=== PATIENT | female | born 2005 | race Caucasian/White ===

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

== ENCOUNTER 2023-01-25 00:21 | Emergency (ER) | payer OTHER, MEDICAID, SELFPAY ==
[2023-01-25 00:24] VITALS: BP 123/65; PULSE 90; RESP 18; TEMP 36.7; O2SAT 98; BMI 36.3
--- NOTE | 2023-01-25 00:50 | ED.RECABL ---
HPI - Recheck/Abnormal Lab/Rx <Monty Dickerson DO - Last Filed: 01/29/23 19:02> General Chief Complaint: Recheck/Abnormal Lab/Rx Stated Complaint: DCS sent Him over to stay the night Time Seen by Provider: 01/25/23 00:26 Source: patient Mode of arrival: Ambulatory History of Present Illness HPI narrative: 17 year old transgender male presents for evaluation. He has a long standing mental health history and made some suicidal comments to mother earlier tonight. EMS was dispatched and there was apparently a discussion with a DCR who had suggested the patient be transported here. The patient came under voluntary circumstances by cab and has absolutely no complaints at this time. Specifically he has no suicidal or homicidal ideation. Has no headaches or blurred vision, no chest pain or shortness of breath. He states that he just does not know what to do now and has been told he can not go home and has no other family in the area. Related Data Home Medications Medication Instructions Recorded Confirmed omeprazole 20 mg capsule,delayed 20 mg PO DAILY 12/22/22 12/28/22 release Previous Rx's Medication Instructions Recorded albendazole 200 mg tablet 400 mg PO Q2W 2 doses #4 tabs 12/24/22 docusate sodium 100 mg capsule 100 mg PO BID PRN Constipation #30 12/25/22 caps hydrocodone 5 mg-acetaminophen 325 2 tab PO Q6HR #20 tabs 12/25/22 mg tablet ibuprofen 600 mg tablet 600 mg PO Q6H #20 tabs 12/25/22 aripiprazole 2 mg tablet (Abilify) 2 mg PO BEDTIME #30 tabs 12/28/22 ascorbic acid (vitamin C) 500 mg 500 mg PO DAILY #90 tabs 12/28/22 tablet ferrous sulfate 325 mg (65 mg 325 mg PO DAILY #90 tabs 12/28/22 iron) tablet aripiprazole 2 mg tablet 2 mg PO BEDTIME #5 tabs 01/25/23 omeprazole 20 mg capsule,delayed 20 mg PO DAILY #5 caps 01/25/23 release Allergies Allergy/AdvReac Type Severity Reaction Status Date / Time erythromycin base Allergy Verified 01/25/23 00:23 Sulfa (Sulfonamide Allergy Verified 01/25/23 00:23 Antibiotics) Review of Systems <DO Ciro Canas Last Filed: 01/29/23 19:02> Review of Systems Narrative: GENERAL: Denies chills, fatigue, malaise, fever, sweats. HEENT: Denies sinus pain, ear pain, sore throat, difficulty swallowing, dizziness. RESPIRATORY: Denies dyspnea, cough, wheezing, hemoptysis, sputum. CARDIOVASCULAR: Denies chest pain, palpitations, orthopnea, edema, GASTROINTESTINAL: Denies nausea, vomiting, abdominal pain, diarrhea, constipation, melena. : Denies dysuria, frequency, incontinence, hematuria, urinary retention. MUSCULOSKELETAL: denies weakness, joint pain, or bony pain SKIN: Denies rash, skin lesions, or other NEUROLOGIC: Denies weakness, headache, numbness, change in speech, confusion, seizures, incoordination. PSYCHIATRIC: See HPI 12 point review of systems is negative except for those stated above Patient History <Monty Dickerson DO - Last Filed: 01/29/23 19:02> Medical History Abdominal pain Acute appendicitis Anxiety (~2005) Depression (~2005) Psychosis PTSD (post-traumatic stress disorder) (~2005) Surgical History Anesthesia History of eye surgery (~2005) History of tonsillectomy Social History household members: family Smoking Status: Current every day smoker alcohol intake: never Smoking Status: Current every day smoker tobacco type: cigarettes Substance Use Type: does not use Exam <Monty Dickerson DO - Last Filed: 01/29/23 19:02> Narrative Exam Narrative: GEN: AOx3 and in mild distress EYES: Pupils are equal, round, and reactive to light and accommodation. Extraoccular muscles are intact bilaterally. There is no subconjunctival hemorrhage or exudate. CHEST: Lungs are clear to auscultation bilaterally and free of wheezes, rales, or rhonchi. Heart rate is regular rhythm, there are no murmurs, clicks, rubs, or gallops. There is no chest wall tenderness. ABD: Abdomen is soft and nontender. There is no guarding or rebound. Bowel sounds are normal in all 4 quadrants. There is no mass or organomegaly. EXT: Full painless ROM of all extremities with no loss of sensation or strength. SKIN: Warm, pink, and dry. No erythema or rash Initial Vital Signs Initial Vital Signs: Vital Signs Temperature 98.1 F 01/25/23 00:24 Pulse Rate 90 01/25/23 00:24 Respiratory Rate 18 01/25/23 00:24 Blood Pressure 123/65 01/25/23 00:24 Pulse Oximetry 98 01/25/23 00:24 Oxygen Delivery Method Room Air 01/25/23 00:24 <Leah Dillard DO - Last Filed: 01/28/23 08:19> Initial Vital Signs Initial Vital Signs: Vital Signs Temperature 98.1 F 01/25/23 00:24 Pulse Rate 90 01/25/23 00:24 Respiratory Rate 18 01/25/23 00:24 Blood Pressure 123/65 01/25/23 00:24 Pulse Oximetry 98 01/25/23 00:24 Oxygen Delivery Method Room Air 01/25/23 00:24 Course <Monty Dickerson DO - Last Filed: 01/29/23 19:02> Orders Ordered: ED Orders 01/25/23 00:29 Consult to [facility] Software Engineer Developer Stat Vital Signs Vital signs: Vital Signs - 8 hr 01/25/23 00:24 Temperature 98.1 F Pulse Rate 90 Respiratory Rate 18 Blood Pressure 123/65 Pulse Oximetry 98 Oxygen Delivery Method Room Air <DO Ciro David Last Filed: 01/28/23 08:19> Orders Ordered: ED Orders 01/25/23 00:[facility] Vital Signs Vital signs: Vital Signs - 8 hr 01/25/23 00:24 Temperature 98.1 F Pulse Rate 90 Respiratory Rate 18 Blood Pressure 123/65 Pulse Oximetry 98 Oxygen Delivery Method Room Air <DO Ciro David Last Filed: 01/28/23 08:19> MDM Narrative Medical decision making narrative: Patient signed out to myself while awaiting disposition. Patient seen and evaluated. Patient was also seen by DISTRIBUTION DESIGNER. Patient's adoptive mom is actually an adult who 'adopted' the patient reportedly over [facility]. Patient has had a recent hospitalization at [facility] in the last several weeks. Patient is felt safe for disposition terms of mental health. Met with DISTRIBUTION DESIGNER who also felt same and patient had spot secured at a homeless senior care. Discharge Plan Departure Patient Disposition: Home Clinical Impression: Thoughts of self-harm Activity Restrictions/Additional Instructions: If you're feeling suicidal or having suicidal thoughts, contact the suicide hotline (this is also a phone number for self-referral and counseling) . Prescriptions: New aripiprazole 2 mg tablet 2 mg PO BEDTIME Qty: 5 0RF omeprazole 20 mg capsule,delayed release(DR/EC) 20 mg PO DAILY Qty: 5 0RF No Action albendazole 200 mg tablet 400 mg PO Q2W Qty: 4 0RF Rx Instructions: must administer with food, preferably a high-fat meal docusate sodium 100 mg Capsule 100 mg PO BID PRN (Reason: Constipation) Qty: 30 0RF hydrocodone-acetaminophen 5-325 mg Tablet 2 tab PO Q6HR Qty: 20 0RF Rx Instructions: take 1-2 tabs as needed alternate with ibuprofen and substitute with tylenol as instructed. ibuprofen 600 mg Tablet 600 mg PO Q6H Qty: 20 0RF Rx Instructions: alternate with norco OR tylenol as instructed. equivalent dose is available over the counter. omeprazole 20 mg capsule,delayed release(DR/EC) 20 mg PO DAILY aripiprazole [Abilify] 2 mg tablet 2 mg PO BEDTIME Qty: 30 2RF ferrous sulfate 325 mg (65 mg iron) tablet 325 mg PO DAILY Qty: 90 0RF Rx Instructions: Take with Vitamin C ascorbic acid (vitamin C) 500 mg tablet 500 mg PO DAILY Qty: 90 0RF Rx Instructions: Take with iron Referrals: Vivian Pollard PA-C [Primary Care Provider] - Stand Alone Forms: Patient Portal/API
--- NOTE | 2023-01-25 01:19 | PC.NURSE ---
Addendum entered by Rosetta Garsia R.N. 01/25/23 03:01: Went to move patient from RM 5 to RM 11 and found patient to be crying. Stating that was informed that he is not allowed to return to home with mom because javan says the legal recovery specialist have come too much. Patient stating he just wants to live with her mom. Asked patient if he had intent to harm self, patient denied. Educated patient that they will be staying in the ED until the morning to visit with social work. Also educated patient that resources to get plan in place for living situation will be worked on and that she has resources in his side like assigned DCR, CHIEF CRNA tomorrow, and staff in the ED. Patient acknowledged this. Verbally asked patient if left in room will there be an intent to harm self, patient denied intent to hurt self and stated they will use call light for needs. Patient given water and warm blankets, oriented to room and given call light. Original Note: Patient using phone to make a call.
[2023-01-25 02:56] VITALS: BP 141/82; PULSE 107; O2SAT 99
--- NOTE | 2023-01-25 08:30 | PC.NURSE ---
According to the pt, she is 17 y/o. 2005. She will be 18 y/o in a few days. She does not have ID on her. She states her adoptive mother is a woman she met on the internet, on Tik[employer], just 6 months ago. Prior to that, this adoptive mother was a stranger to her. She states this woman has not actually adopted her. Pt said this adoptive mother, Bridget Nguyen of [facility], arranged for a man named Bryant to pay for her ticket to [facility] on November 26, 2022. The adoptive mother Bridget Nguyen called the police on the pt last night stating the pt needs to leave her home and is not allowed to return to that residence. Pt told EMS/police on [place] that she was thinking about self-harm. Pt arrives [facility] by taxi. Pt denies SI/HI. When asked about her statement re: self harm the pt states she cuts herself to feel better and has a hx of this behavior. Pt denies recent self-harm. Pt states she has tried to call the adoptive mother numerous times last night and today but she is not answering her calls. The adoptive mother Bridget Nguyen lives at [address] [place] [address] Pt is from [place]. States she lives with her grandma, Lydia Garcia, in [facility] but unwilling to provide her grandmother's phone number. When asked if her family knows she is in [place] states she said no. Her grandmothers address is [address] [place] [address].
--- NOTE | 2023-01-25 15:04 | CM.SWNOTE ---
ED PROCESS EXPERT Assessment Note Patient is 17 y/o F-M transgender patient (He/Him pronouns) presents to ED via EMS last night after crisis line was contacted. Patient endorses he was having PTSD flashbacks and had thoughts of harming himself and reported it to adoptive mom. Patient recently moved her from [place] a few months ago, and connected with adoptive mom online and she arranged transportation for patient to move to [facility] with her. It is reported that patient cannot return to home due to landlord not approving patient to stay. Patient has PCP Vivian Pollard, has [employer] insurance. Per EMR, patient has hx of MDD, Psychosis, HUNG and PTSD. Patient had recent QUINTEN hospitalization at [facility] on 01/13/23 due to SI. PROCESS EXPERT meets with patient. Patient presents as A/Ox4, euthymic, full range. Patient denies SI, HI and thoughts of self harm. Patient endorses hx of SI and hx of thoughts of cutting self with knife a few weeks ago which led to hospitalization. Patient endorses hx of self harm cutting and denies current self harm. Patient speaks with Voluntary crisis responder through [facility] via phone Atilio. Who connects patient with recourses for halfway through [employer]. PROCESS EXPERT receives call from [employer] who supports patient in finding emergent housing at [email or web address] halfway in [facility]. It is reported that they can support patient with transitional housing as well. Patient endorses he has felt safe staying with adoptive mother and is concerned about current medication and belongings there. PROCESS EXPERT reviews this with ED provider who reports they can write paper prescriptions of patient's home medication. PROCESS EXPERT informs [email or web address] [place] concern about patient getting belongings, PROCESS EXPERT encourages patient to reach out to adoptive mom to coordinate this. Patient endorses goals for the future of going to school, staying in [place] and finding housing. PROCESS EXPERT provides patient with resources for HS basic needs, crisis contacts and information about [employer] and [email or web address]. It is the opinion of this PROCESS EXPERT that patient is safe to d/c to community. Plan: patient to d/c to home upon medical clearance, patient picked up by employee from [employer], patient to scrap picker rx and f/u with seeking transitional housing and basic needs. Joya Chapman, PHOTO OPTICS TECHNICIAN
== END 2023-01-25 15:20 | disposition home or self-care (01) ==
PROVIDERS: Emergency Provider Emergency Medicine; PCP Physician Assistant
DX: Z04.89 Encounter for examination and observation for other specified reasons (principal)
CPT/HCPCS: 99281; 99282